=== PATIENT | female | born 1945 | race Asian ===

== ENCOUNTER 2025-06-08 13:45 | Emergency (ER) | payer OTHER ==
[2025-06-08 14:42] VITALS: BP 159/80; PULSE 91; RESP 19; TEMP 97.9; BMI 23.5
[2025-06-08 15:59] LABS: ABSOLUTE IMMATURE GRANULOCYTES 0.04 x10^3/uL (0.0-0.031); BASOPHILS # 0.10 x10^3/uL (0.01-0.08); EOSINOPHIL % 3.2 % (0.7-5.8); EOSINOPHILS # 0.24 x10^3/uL (0.04-0.36); MCHC 31.3 g/dl (32.2-35.5); MEAN CELL VOLUME 94.1 fl (79.4-94.8); MEAN PLT VOLUME 8.9 fl (9.4-12.3); MONOCYTE # 0.60 x10^3/uL (0.24-0.86); MONOCYTE % 7.9 % (4.7-12.5); RDW 13.6 % (12.4-16.6)
== END 2025-06-08 16:48 | disposition home or self-care (01) ==
LOC: JER 13:45
DX: K62.5 Hemorrhage of anus and rectum (principal); K64.8 Other hemorrhoids
CPT/HCPCS: 36415; 82272; 85025; 86850; 86900; 86901; 99283-25

== ENCOUNTER 2025-08-16 09:16 | Emergency (ER) | payer OTHER ==
[2025-08-16 09:46] VITALS: BP 134/70; PULSE 65; RESP 16; TEMP 98.1; BMI 24.0
[2025-08-16] MEDS ORDERED: ACETAMINOPHEN 325 MG TABLET (FP) ONE (11:56)
[2025-08-16] MEDS ORDERED: LIDOCAINE 5% TOPICAL PATCH ONE (11:56)
[2025-08-16] MEDS: LIDOCAINE 5% TOPICAL PATCH TP ONE (12:00)
[2025-08-16] MEDS: ACETAMINOPHEN 500 MG TABLET (FP) PO ONE (12:00)
[2025-08-16] MEDS ORDERED: LIDOCAINE PATCH REMOVAL MC SCH (22:00)
== END 2025-08-16 17:03 | disposition left against medical advice (07) ==
LOC: JER 09:16
DX: M54.50 Low back pain, unspecified (principal); M54.6 Pain in thoracic spine; G89.29 Other chronic pain
CPT/HCPCS: 71045-TC-FY; 72128-TC; 72131-TC; 76937; 93005; 93010; 99285-25